=== PATIENT | male | born 1980 | race Caucasian/White ===

== ENCOUNTER 2019-08-11 11:27 | Emergency (ER) | payer OTHER ==
[~2019-08-11] VITALS: Ht 154.9 cm; Wt 81.8 kg
[2019-08-11] MEDS ORDERED: KETOROLAC TROMETHAMINE 30 MG/ML VIAL IM ONE (12:00)
[2019-08-11] MEDS ORDERED: SILVER SULFADIAZINE 1% 25 GM CREAM TP ONE (12:15)
[2019-08-11 12:33] VITALS: BP 149/93
== END 2019-08-11 12:42 | disposition home or self-care (01) ==
LOC: EMS 11:32
DX: T23.201A Burn of second degree of right hand, unspecified site, initial encounter (principal); F17.210 Nicotine dependence, cigarettes, uncomplicated; R03.0 Elevated blood-pressure reading, without diagnosis of hypertension; X10.1XXA Contact with hot food, initial encounter; Y93.89 Activity, other specified; Y92.89 Other specified places as the place of occurrence of the external cause; Y99.0 Civilian activity done for income or pay
CPT/HCPCS: 16020; 99284; J1885; 96372